=== PATIENT | male | born 1970 | race Asian ===

== ENCOUNTER 2025-10-28 21:51 | Emergency (ER) | payer MEDICAID ==
[~2025-10-28] VITALS: Ht 167.6 cm; Wt 68.0 kg
[2025-10-28 22:24] LABS: PLATELET COUNT (AUTO) 230 K/uL (150-450); RED BLOOD CELL COUNT(AUTO) 4.95 MIL/uL (4.5-6.0); RED CELL DISTRIBUTION WIDTH 14.1 % (11.5-15.0); WHITE BLOOD COUNT (AUTO) 6.2 K/uL (4.3-11.0)
[2025-10-28 22:32] LABS: CALCIUM, SERUM 8.5 mg/dL (8.5-10.1); CREATININE 1.1 mg/dL (0.6-1.3); SODIUM SERUM 144 mmol/L (136-145); UREA NITROGEN, BLOOD 21 mg/dL (7-18)
[2025-10-28 22:37] LABS: ASPARTATE AMINOTRANSFERASE 17 U/L (15-37); TOTAL PROTEIN, SERUM 7.5 g/dL (6.4-8.2)
[2025-10-28] MEDS ORDERED: ASPIRIN EC 325 MG TABLET.DR PO ONE (22:44)
[2025-10-28] MEDS: ASPIRIN EC 325 MG TABLET.DR PO ONE (22:47)
[2025-10-28] MEDS ORDERED: MIDO5TAB4 PO (23:55)
[2025-10-29 00:04] VITALS: BP 101/65; TEMP 98; O2SAT 95
== END 2025-10-29 00:05 | disposition home or self-care (01) ==
LOC: ER 21:56
DX: R55 Syncope and collapse (principal); I25.10 Atherosclerotic heart disease of native coronary artery without angina pectoris; Z95.1 Presence of aortocoronary bypass graft; Z95.5 Presence of coronary angioplasty implant and graft
CPT/HCPCS: 36415; 71045-TC; 80048-TC; 80076-TC; 84484-TC; 85025-TC